=== PATIENT | male | born 1950 | race Caucasian/White ===

== ENCOUNTER 2016-04-06 07:40 | Emergency (ER) | payer OTHER ==
[2016-04-06 07:46] VITALS: BP 160/85; PULSE 68; TEMP 98; BMI 28.8
[2016-04-06] MEDS ORDERED: ACETAMINOPHEN 325 MG TABLET (FP) PO ONE (08:02)
--- NOTE | 2016-04-06 08:04 | PDOC ---
History of Present Illness - General History Source: Patient Exam Limitations: No Limitations <Franco Brennan - Last Filed: 04/06/16 09:49> - General History Source: Patient Exam Limitations: No Limitations - History of Present Illness Initial Comments: 04/06/16 08:10 The patient is a 65-year-old man with a significant past medical history of hypertension and diabetes mellitus who presents to the emergency department for further evaluation of right shoulder pain status post fall 2 days ago. No head injury, LOC. He reports he was working outside on Wednesday, when he slipped on ice and fell backwards, ultimately landing on his posterior right shoulder. Patient does not described the nature of the pain but rates his pain a 7/10 and notes that his pain is exacerbated with movements such as flexion/extension of the right arm. Patient also reports right sided neck/shoulder pain. He reports taking Motrin on on Wednesday, which provided minimal relief. He denies experiencing weakness and paresthesias to his extremities. He denies mid back/neck pain, chest pain, shortness of breath, headache. He denies abdominal pain, nausea, vomiting, visual changes. He denies any other bodily injury/pain. Allergies: None Known Drug Allergies Past Surgical History: None reported Social History: No tobacco, ETOH and recreational drug use. Primary Care Physician: Dr. Danielle Waters [phone] <Merna Hernandez - Last Filed: 04/06/16 10:41> - General Chief Complaint: Injury Stated Complaint: FALL Time Seen by Provider: 04/06/16 07:51 Past History - Past Medical History Diabetes: Yes HTN: Yes - Family Disease History Family Disease History: Diabetes: Father - Psycho/Social/Smoking Cessation Hx Anxiety: No Suicidal Ideation: No Smoking Status: No Smoking History: Never smoked Number of Cigarettes Smoked Daily: 0 Information on smoking cessation initiated: No Hx Alcohol Use: No Drug/Substance Use Hx: No Substance Use Type: None Hx Substance Use Treatment: No <Franco Brennan - Last Filed: 04/06/16 09:49> <Merna Hernandez - Last Filed: 04/06/16 10:41> - Past Medical History Allergies/Adverse Reactions: Allergies Allergy/AdvReac Type Severity Reaction Status Date / Time No Known Allergies Allergy Verified 04/06/16 07:46 Home Medications: Ambulatory Orders Metformin HCl [Glucophage] 500 mg PO BID 09/07/11 Canagliflozin [Invokana] 100 mg PO DAILY 09/19/14 Insulin Glargine,Hum.rec.anlog [Lantus Solostar PEN (NF)] 40 units SQ HS Losartan Potassium 50 mg PO DAILY 09/19/14 Review of Systems - Review of Systems Able to Perform ROS?: Yes Comments:: 04/06/16 08:10 CONSTITUTIONAL: No reported: Fever, Chills, Diaphoresis, Generalized Weakness, Malaise, Loss of Appetite HEENT: No reported: Rhinorrhea, Nasal Congestion, Throat Pain, Throat Swelling, Difficulty Swallowing, Mouth Swelling, Ear Pain, Eye Pain, Visual Changes CARDIOVASCULAR: No reported: Chest Pain, Syncope, Palpitations, Irregular Heart Rate, Lightheadedness, Peripheral Edema RESPIRATORY: No reported: Cough, Shortness of Breath, SOB with Exertion, Orthopnea, Wheezing, Stridor, Hemoptysis GASTROINTESTINAL: No reported: Abdominal pain, Abdominal Distension, Nausea, Vomiting, Diarrhea, Constipation, Melena, Hematochezia GENITOURINARY: No reported: Dysuria, Frequency, Urgency, Hesitancy, Flank Pain, Genital Pain MUSCULOSKELETAL: Reported: +Right Shoulder Pain. +Right Sided Neck Pain. No reported: Swelling, Back pain SKIN: No reported: Rash, Itching, Pallor HEMEATOLOGIC/IMMUNOLOGIC: No reported: Easy Bleeding, Easy Bruising, Lymphadenopathy, Frequent infections ENDOCRINE: No reported: Unexplained Weight Gain, Unexplained Weight Loss, Heat Intolerance, Cold Intolerance NEUROLOGIC: No reported: Headache, Focal Weakness, Paresthesias, Vertigo, Lightheadedness, Unsteady Gait, Seizure, Mental Status Changes, Incontinence PSYCHIATRIC: No reported: Anxiety, Depression <Merna Hernandez - Last Filed: 04/06/16 10:41> *Physical Exam - Vital Signs Last Vital Signs Temp Pulse Resp BP Pulse Ox 98 F 68 18 160/85 99 04/06/16 07:42 04/06/16 07:42 04/06/16 07:42 04/06/16 07:42 04/06/16 07:42 <Franco Brennan - Last Filed: 04/06/16 09:49> - Vital Signs Last Vital Signs Temp Pulse Resp BP Pulse Ox 98 F 68 18 160/85 99 04/06/16 07:42 04/06/16 07:42 04/06/16 07:42 04/06/16 07:42 04/06/16 07:42 - Physical Exam Comments: 04/06/16 08:10 GENERAL: The patient is awake, alert, and fully oriented, Nontoxic - in no acute distress. HEAD: Normocephalic, atraumatic. EYES: extraocular movements intact, sclera anicteric, conjunctiva clear. ENT: Normal voice, Moist mucous membranes. NECK: Normal range of motion, supple LUNGS: Breath sounds equal, clear to auscultation bilaterally. No wheezes, no rhonchi, no rales. HEART: Regular rate and rhythm, without murmur, rub or gallop. ABDOMEN: Soft, nontender, normoactive bowel sounds. No guarding, no rebound.No CVA tenderness EXTREMITIES: Normal range of motion, no edema. No clubbing or cyanosis. No cords , erythema, or tenderness. BACK: No midline tenderness to the cervical, thoracic or lumbar spine MUSCULOSKELETAL: +There is mild anterior right shoulder pain. There is noted mild discomfort on active range of motion of the right shoulder. FROM of b/l elbows, wrist. FROM of hips, knees, ankles - No signs of ecchymosis, erythema, or crepitus noted on palpation extremities, chest wall, clavicles, ribs, back. NEUROLOGICAL: No facial asymmetry, Normal speech, PSYCH: Normal mood, normal affect. SKIN: Warm, Dry, normal turgor. <Merna Hernandez - Last Filed: 04/06/16 10:41> ED Treatment Course - RADIOLOGY Radiology Studies Ordered: Category Date Time Status SHOULDER-RIGHT [RAD] Stat Radiology 04/06/16 08:03 Ordered <Franco Brennan - Last Filed: 04/06/16 09:49> - RADIOLOGY Radiograph Interpretation: 04/06/16 09:22 EXAM: RAD/SHOULDER-RIGHT IMPRESSION: Internal and external rotation views of the right shoulder are provided. No acute fracture or dislocation is seen. There is osteopenia. There is a rounded well-defined subcentimeter lytic focus in the anatomic neck of the humerus with sclerotic rind consistent with benign etiology such as a cyst. <Merna Hernandez - Last Filed: 04/06/16 10:41> Medical Decision Making - Medical Decision Making 04/06/16 08:18 65y M hx dm, htn, presents with R shoulder pain. Pt is s/p fall on wednesday, falling backwards on ice and landing on his R shoulder, no head injury, loc, neck pain, back pain, numbness/tingling/weakness. Pt complaining of diffuse pain to his R shoulder, but able to range with mild discomfort. on exam pt has mild anterior shoulder tenderness. will give pain meds for sypmtomatic relief will ck shoulder xray A portion of this note was documented by scribe services under my direction. I have reviewed the details of the note, within reason, and agree with the documentation with the following case summary and management plan written by me 04/06/16 09:28 pts xray is negative for fracture/dislocation possible ligmentous injury from fall will recommend supportive management at home and have pt fu with ortho return precautions were discussed I discussed the physical exam findings, ancillary test results and final diagnoses with the patient. I answered all of the patient's questions. The patient was satisfied with the care received and felt comfortable with the discharge plan and treatment plan. The patient will call their primary care physician within 24 hours to arrange follow-up and will return to the Emergency Department with any new, persistent or worsening symptoms. <Franco Brennan - Last Filed: 04/06/16 09:49> *DC/Admit/Observation/Transfer - Discharge Dispostion Admit: No <Franco Brennan - Last Filed: 04/06/16 09:49> - Attestations Scribe Attestion: 04/06/16 08:11 Documentation prepared by Merna Hernandez, acting as certified medical asst for Franco Brennan MD. <Merna Hernandez - Last Filed: 04/06/16 10:41> Diagnosis at time of Disposition: Shoulder pain, right Qualifiers: Chronicity: acute Qualified Code(s): M25.511 - Pain in right shoulder - Discharge Dispostion Disposition: HOME Condition at time of disposition: Improved - Referrals Referrals: Danielle Waters MD [Primary Care Provider] - Irwin Veloz MD [Staff Physician] - - Patient Instructions Printed Discharge Instructions: DI for Shoulder Pain Additional Instructions: Return to the emergency department immediately with ANY new, persistent or worsening symptoms. Take ibuprofen as needed for pain every 6 hours Use heat for comfort. You MUST call and follow up with your orthopedics if you have pain more than 4- 5 days for further evaluation of your symptoms. Results were discussed with you. Please make sure your doctor reviews the results of your emergency evaluation. Print Language: IRAQI - Post Discharge Activity Work/School Note: Back to Work
[2016-04-06] MEDS ORDERED: ACETAMINOPHEN 325 MG TABLET (FP) ONE (08:12)
== END 2016-04-06 09:50 | disposition home or self-care (01) ==
LOC: JER 07:40
DX: M25.511 Pain in right shoulder (principal); W00.2XXA Other fall from one level to another due to ice and snow, initial encounter; Y93.89 Activity, other specified; Y92.69 Other specified industrial and construction area as the place of occurrence of the external cause; Y99.0 Civilian activity done for income or pay; I10 Essential (primary) hypertension; E11.9 Type 2 diabetes mellitus without complications; Z79.4 Long term (current) use of insulin
CPT/HCPCS: 73030-TC-RT; 99282-25

== ENCOUNTER 2017-03-27 11:49 | Emergency (ER) | payer BC, OTHER ==
[2017-03-27 12:00] VITALS: TEMP 98.1; BMI 28.9
--- NOTE | 2017-03-27 12:21 | PDOC ---
Attending Attestation - Resident Resident Name: Raul Camacho - HPI HPI: 03/27/17 13:16 Pt presents to the ED complaining of myalgias and chills for the last three days. DAtes the onset of his symptoms to a recent dental procedure. Denies nausea, vomiting, upper respiratory complaints or abdominal pain. - Physicial Exam PE: 03/27/17 13:17 Agree with resident exam. Patient is well appearing, abdomen is non tender, lungs are clear. - Medical Decision Making 03/27/17 13:20 Pt presents to the ED with generalized malaise and chills. Differential includes flu, other viral illness, less likely bacterial illness. Will check flu swab, likely discharge home with tamiflu if flu positive. Will check labs to investigate for other illness if flu negative.
--- NOTE | 2017-03-27 12:47 | PDOC ---
History of Present Illness - General Chief Complaint: Cold Symptoms Stated Complaint: CHILLS Time Seen by Provider: 03/27/17 12:10 History Source: Patient Exam Limitations: No Limitations - History of Present Illness Initial Comments: 03/27/17 12:41 Patient is a 66M with history of DM (on metformin, invokana, and glyburide) and HTN here today complaining of chills, bodyaches and malaise for the past 3 days. He had a dental procedure 2 weeks ago that placed a temporary cap on a right lower molar, and was given penicillin three days ago for pain related around the site. The patient denies fevers, nausea, vomiting, cough, shortness of breath, abdominal pain and chest pain. Patient has been on metformin since 1996, has never had issues with metformin. PCP Dr Iraheta sent him in for further evaluation because he did not appear well to him. Patient got a flu shot this year. No sick contacts. Past History - Past Medical History Allergies/Adverse Reactions: Allergies Allergy/AdvReac Type Severity Reaction Status Date / Time No Known Allergies Allergy Verified 03/27/17 12:01 Home Medications: Ambulatory Orders Metformin HCl [Glucophage] 500 mg PO BID 09/07/11 Canagliflozin [Invokana] 100 mg PO DAILY 09/19/14 Insulin Glargine,Hum.rec.anlog [Lantus Solostar PEN (NF)] 40 units SQ HS Losartan Potassium 50 mg PO DAILY 09/19/14 COPD: No Diabetes: Yes HTN: Yes - Family Disease History Family Disease History: Diabetes: Father - Suicide/Smoking/Psychosocial Hx Smoking Status: No Smoking History: Never smoked Number of Cigarettes Smoked Daily: 0 Hx Alcohol Use: No Drug/Substance Use Hx: No Substance Use Type: None Hx Substance Use Treatment: No Review of Systems - Review of Systems Comments:: 03/27/17 12:48 GENERAL/CONSTITUTIONAL: No fever. Positive for chills. HEAD, EYES, EARS, NOSE AND THROAT: No change in vision. No sore throat. CARDIOVASCULAR: No chest pain or shortness of breath RESPIRATORY: No cough, wheezing, or hemoptysis. GASTROINTESTINAL: No nausea, vomiting, diarrhea or constipation. GENITOURINARY: No dysuria, frequency, or change in urination. MUSCULOSKELETAL: Positive for aches in back, neck, legs. SKIN: No rash NEUROLOGIC: Positive for headache. Negative for vertigo, loss of consciousness, or change in strength/sensation. ALLERGIC/IMMUNOLOGIC: No hives or skin allergy. *Physical Exam - Vital Signs Last Vital Signs Temp Pulse Resp BP Pulse Ox 98.1 F 70 20 162/82 99 03/27/17 11:57 03/27/17 11:57 03/27/17 11:57 03/27/17 11:57 03/27/17 11:57 - Physical Exam Comments: 03/27/17 12:49 GENERAL: Awake, alert, and fully oriented, in no acute distress, tired appearing HEAD: No signs of trauma, normocephalic, atraumatic EYES: PERRLA, EOMI, sclera anicteric, conjunctiva clear ENT: Auricles normal inspection, hearing grossly normal, nares patent, oropharynx clear without exudates. Moist mucosa. Several missing teeth, no signs of acute infection. NECK: Normal ROM, supple, no lymphadenopathy, JVD, or masses LUNGS: No distress, speaks full sentences, clear to auscultation bilaterally HEART: Regular rate and rhythm, normal S1 and S2, no murmurs, rubs or gallops, peripheral pulses normal and equal bilaterally. EXTREMITIES: Normal inspection, Normal range of motion, no edema. No clubbing or cyanosis. NEUROLOGICAL: Cranial nerves II through XII grossly intact. Normal speech, normal gait, no focal sensorimotor deficits SKIN: Warm, Dry, normal turgor, no rashes or lesions noted. ED Treatment Course - LABORATORY CBC & Chemistry Diagram: 03/27/17 14:24 03/27/17 14:24 Medical Decision Making - Medical Decision Making 03/27/17 12:50 66M with history of HTN and DM here today with chills, bodyaches and general malaise. Vital signs stable and normal. Afebrile. Dr Layton called, concerned for flu and possible bacteremia due to recent dental procedure. Will evaluate with flu swab initially, will broaden workup if negative. 03/27/17 15:10 Flu negative. Laboratory Tests 03/27/17 03/27/17 03/27/17 14:24 14:24 14:24 WBC 7.5 Hgb 15.8 Hct 48.1 Plt Count 241 BUN 13 D Creatinine 0.9 Random Glucose 119 H D Lactic Acid 1.9 CBC normal. CMP normal. Lactate negative. Will discharge with PCP follow up. 03/27/17 15:41 Discharge vitals: 98.7 61 98% 132/90 *DC/Admit/Observation/Transfer Diagnosis at time of Disposition: Malaise and fatigue - Discharge Dispostion Disposition: HOME Condition at time of disposition: Good - Referrals Referrals: Danielle Waters MD [Primary Care Provider] - - Patient Instructions Printed Discharge Instructions: DI for Common Cold Additional Instructions: Please return if you have any new, worsening or concerning symptoms. Please follow up with your PCP next week. - Post Discharge Activity
[2017-03-27] MEDS ORDERED: KETOROLAC TROMETHAMINE 30 MG/1 ML VIAL ONE (14:18)
[2017-03-27] MEDS ORDERED: SODIUM CHLORIDE 1,000 ML IV STA (14:26)
[2017-03-27 14:32] LABS: BASO % 0.7 % (0-2.0); EOS % 2.1 % (0-4.5); HEMATOCRIT 48.1 % (35.4-49); HEMOGLOBIN 15.8 GM/dL (11.7-16.9); LYMPH % 30.5 % (8-40); MCH 28.2 pg (25.7-33.7); MCHC 32.9 g/dl (32.0-35.9); MEAN CELL VOLUME 85.8 fl (80-96); MONO % 7.5 % (3.8-10.2); NEUT % 59.2 % (42.8-82.8); PLATELET COUNT 241 K/MM3 (134-434); RBC 5.61 M/mm3 (4.00-5.60); RDW 13.6 % (11.9-15.9); WHITE BLOOD COUNT 7.5 K/mm3 (4.0-10.0)
[2017-03-27] MEDS ORDERED: KETOROLAC TROMETHAMINE 30 MG/1 ML VIAL IVPUSH ONE (14:46)
[2017-03-27 14:55] LABS: ANION GAP 8 (8-16); BILIRUBIN,TOTAL 0.6 mg/dL (0.2-1.0); BLOOD UREA NITROGEN 13 mg/dL (7-18); CALCIUM 9.7 mg/dL (8.5-10.1); CHLORIDE 100 mmol/L (98-107); CO2 28 mmol/L (21-32); CREATININE 0.9 mg/dL (0.7-1.3); GLUCOSE,RANDOM 119 mg/dL (74-106); POTASSIUM 3.9 mmol/L (3.5-5.1); SGOT/AST 17 U/L (15-37); SGPT/ALT 52 U/L (12-78); SODIUM 136 mmol/L (136-145); TOT PROT 8.5 g/dl (6.4-8.2)
[2017-03-27 14:56] LABS: ALK PHOS 55 U/L (45-117)
[2017-03-27 15:48] VITALS: BP 150/80; PULSE 68
== END 2017-03-27 15:30 | disposition home or self-care (01) ==
LOC: JER 11:49
DX: R53.83 Other fatigue (principal); I10 Essential (primary) hypertension; E11.9 Type 2 diabetes mellitus without complications; Z79.4 Long term (current) use of insulin
CPT/HCPCS: 36415; 80053; 83605; 85025; 87040; 87804; 99284-25

== ENCOUNTER 2023-04-30 08:05 | Day surgery (SDC) | payer OTHER, BC ==
[2023-04-26 16:14] VITALS: BMI 28.5
[2023-04-30] MEDS ORDERED: CEFAZOLIN 2 GM in DEXTROSE 5%-WATER - 100 ML IVPB ONE (08:11)
[2023-04-30] MEDS ORDERED: MIDAZOLAM HCL 2 MG/2 ML SINGLE DOSE VIAL ONE (09:02)
[2023-04-30] MEDS ORDERED: ACETAMINOPHEN INJECTION 100 ML IVPB ONE (09:02)
[2023-04-30] MEDS ORDERED: ROPIVACAINE HCL 0.5% 30ML VIAL ONE (09:02)
[2023-04-30] MEDS ORDERED: PROPOFOL 20 ML ONE (09:22)
[2023-04-30] MEDS ORDERED: BUPIVACAINE HCL/PF 0.25% (2.5MG/ML) 10 ML VIAL ONE (09:53)
[2023-04-30] MEDS ORDERED: ePHEDrine SULFATE 50 MG/1 ML AMPULE ONE (10:02)
[2023-04-30] MEDS ORDERED: oxyCODONE HCL 5 MG TABLET PO PRN (11:38)
[2023-04-30] MEDS ORDERED: ONDANSETRON 4 MG/2 ML VIAL IVPUSH PRN (11:38)
[2023-04-30] MEDS ORDERED: LACTATED RINGERS SOLUTION 1,000 ML IV SCH (11:45)
[2023-04-30 13:06] VITALS: TEMP 98.2
[2023-04-30 13:08] VITALS: BP 134/68; PULSE 52; RESP 19
== END 2023-04-30 13:10 | disposition home or self-care (01) ==
LOC: FASU 08:05
PROVIDERS: ATTEND Orthopaedic Surgery Sports Medicine
PROC: 0QSG04Z Reposition Right Tibia with Internal Fixation Device, Open Approach (ICD-10-PCS; principal; 2023-04-30 10:28)
DX: S82.51XA Displaced fracture of medial malleolus of right tibia, initial encounter for closed fracture (principal); X58.XXXA Exposure to other specified factors, initial encounter; Y92.9 Unspecified place or not applicable; Y93.9 Activity, unspecified
CPT/HCPCS: 27766; C1713; 73610-TC-RT-FY; 73630-TC-RT-FY; 82962; 94760; J0131

== ENCOUNTER 2024-12-15 06:09 | Day surgery (SDC) | payer OTHER, BC ==
[2024-12-04 14:32] VITALS: BMI 29.2
[2024-12-15 07:30] VITALS: TEMP 98
[2024-12-15 09:11] VITALS: BP 126/78; PULSE 55; RESP 16
== END 2024-12-15 09:11 | disposition home or self-care (01) ==
LOC: JASU-ENDO 06:09
PROVIDERS: ATTEND Internal Medicine Gastroenterology
PROC: 0DBN8ZX Excision of Sigmoid Colon, Via Natural or Artificial Opening Endoscopic, Diagnostic (ICD-10-PCS; 2024-12-15)
PROC: 0DBK8ZX Excision of Ascending Colon, Via Natural or Artificial Opening Endoscopic, Diagnostic (ICD-10-PCS; principal; 2024-12-15 08:00)
DX: Z12.11 Encounter for screening for malignant neoplasm of colon (principal); D12.5 Benign neoplasm of sigmoid colon; D12.2 Benign neoplasm of ascending colon; K64.8 Other hemorrhoids; K57.30 Diverticulosis of large intestine without perforation or abscess without bleeding; Z86.0100 Personal history of colon polyps, unspecified
CPT/HCPCS: 82962; 88305-TC